=== PATIENT | female | born 1995 | race Hispanic/Latino ===

== ENCOUNTER 2020-02-16 15:18 | Outpatient (CLI) | payer OTHER ==
--- NOTE | 2020-02-16 17:51 | MRI ---
MRI OF LEFT KNEE WITHOUT CONTRAST: 02/16/20 HISTORY: Internal derangement of the left knee. COMPARISON: Knee radiograph 10/14/19. Knee MRI 2017. FINDINGS: MEDIAL MENISCUS: Intact. LATERAL MENISCUS: Intact. ACL, PCL, MCL and LCL are all intact. 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 Near complete flattening of the superior trochlea. The quadriceps tendon and patellar tendon are intact. Mild pretibial soft tissue swelling and distend ed superficial draining vein. CARTILAGE: Patellofemoral compartment: Intact. Medial compartment: Some mild chondral fraying of the central weightbearing surface medial femoral condyle. Lateral compartment: Intact. MUSCLES: Muscle signal and bulk is normal. SOFT TISSUES: Small popliteal cyst. BONES: Aside from the aforementioned trochlear dysplasia, there is no osseous abnormality. IMPRESSION: 1. 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 2. Moderate pretibial soft tissue swelling with mildly distended superficial draining veins. 3. Small popliteal cyst. POS: HOME
== END 2020-02-16 15:19 | disposition home or self-care (01) ==
LOC: BICMRI 15:18
PROVIDERS: ATTEND Orthopaedic Surgery
DX: M23.92 Unspecified internal derangement of left knee (principal); S83.012A Lateral subluxation of left patella, initial encounter; M71.22 Synovial cyst of popliteal space [Baker], left knee; M79.89 Other specified soft tissue disorders; I87.8 Other specified disorders of veins; Q74.1 Congenital malformation of knee